=== PATIENT | female | born 1970 | race Caucasian/White ===

== ENCOUNTER → 2023-08-07 13:57 | Outpatient (REF) | payer OTHER, SELFPAY | LOC: HWRAD 13:57 | PROVIDERS: ATTENDING PHYSICIAN Advanced Practice Midwife; FAMILY PHYSICIAN Nurse Practitioner Family | DX: N92.6 Irregular menstruation, unspecified (principal) | CPT/HCPCS: 76830; 76856 ==

== ENCOUNTER 2023-08-20 23:28 | Emergency (ER) | payer OTHER, SELFPAY ==
[2023-08-20 23:32] VITALS: BP 172/74
--- NOTE | 2023-08-21 00:32 | ED.GENMED ---
History of Present Illness
General
Chief Complaint: Dental Problem
Source: patient
Exam Limitations: none
Time Seen by Provider: 08/21/23 00:21
Nursing documentation reviewed up to this point in time: agreed with
Travel History
Have you had any contact with someone who has COVID-19?: No
Do you have any symptoms of coronavirus? Fever > 100 degrees, chills, cough, shortness of breath, sore throat, loss of taste or smell, muscle aches, or headache?: No
History of Present Illness
History of Present Illness:
51-year-old female left upper posterior molar tooth ache wisdom tooth, acute on chronic issue worsened this evening after having tomato sauce better with drinking water she felt some pain into her ear, some nausea she believes due to drinking too
much water she feeling better now she has some ibuprofen she scheduled to see a dentist in a few weeks
Past History
Past History
ED Past Medical History: Other (Kidney stone), Other (Menorrhagia) and Other (Migraine headache )
ED Past Surgical History: Other (D+C, 09/2020)
Patient has exhibited threatening behavior?: No
Social History
Tobacco: Non-smoker
Alcohol: Occasional
Drug: None
Personal:
Living: with family
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
Family History
Family History: Other (MT, CVA, hypertension )
Review of Systems
Review of Systems
All Other Systems: Not applicable
Constitutional: Denies fever
EENT: Reports other (Tooth ache)
ABD/GI: Reports nausea
Phy Exam
Physical Exam
Physical Exam:
Physical Exam
General: no apparent distress, not acutely ill
Neck: No trismus, multiple fillings in the left upper molars, no obvious abscess,
Lungs: no acute respiratory distress.
Neuro: alert and oriented.
Skin: no rash
Psychiatric: well kept. interactive and cooperative
Extremities: No cyanosis
Course
Orders/Labs/Results
Orders:
Orders
08/21/23 00:31
Ibuprofen [Motrin] 600 mg PO NOW STA
Penicillin V Potassium [Pen Vk] 250 mg PO NOW STA
Vital Signs
Initial and Last Documented VS:
Initial Vital Signs
Temp Pulse Resp BP Pulse Ox
97.5 F 78 26 172/74 100
08/20/23 23:32 08/20/23 23:32 08/20/23 23:32 08/20/23 23:32 08/20/23 23:32
Last Documented Vital Signs
Temp Pulse Resp BP Pulse Ox
97.5 F 78 26 172/74 100
08/20/23 23:32 08/20/23 23:32 08/20/23 23:32 08/20/23 23:32 08/20/23 23:32
MDM/Problems Addressed
Differential Diagnosis Includes:
Dental pain abscess infection pulpitis
MDM/Problems Addressed:
Dental pain
*Pulse Oximetry
Patient hypoxic: no
*Critical Care Note
Total Time (30-74mins, 75-104mins- exclusive of procedures): Not Applicable
Update Note
Update Note:
1230 patient no acute distress states she is feeling better drinking water will give her the number for local oral surgeon she can follow-up with she tells me she needs to have her wisdom teeth removed
ED Attending Note
-
Portions of this chart may have been created with voice recognition software.� Occasional wrong word or��sound alike� substitutions may have occurred due to the inherent limitations of voice recognition software.
Discharge Plan
Departure
Prescriptions:
No Action
multivitamin with folic acid [Tab-A-Lenka] 1 TABLET tablet
1 tab PO DAILY
Magnesium
1 tab PO DAILY
Vitamin C:
1 tab PO DAILY
Iron Infusion
1 dose IV WEEKLY
Interventions
Interventions:
*Risk Screen - Suicide Last Done: 08/20/23 23:32
*Neglect/Abuse Screening Last Done: 08/20/23 23:32
[2023-08-21] MEDS: PEN VK 250 MG PO (00:48)
[2023-08-21] MEDS: MOTRIN 600 MG PO (00:48)
== END 2023-08-21 01:02 | disposition home or self-care (01) ==
LOC: EMR 23:28
PROVIDERS: EMERGENCY PHYSICIAN Emergency Medicine; FAMILY PHYSICIAN Nurse Practitioner Family
DX: K08.89 Other specified disorders of teeth and supporting structures (principal); I25.2 Old myocardial infarction; Z82.3 Family history of stroke; Z82.49 Family history of ischemic heart disease and other diseases of the circulatory system; Z87.442 Personal history of urinary calculi
CPT/HCPCS: 99282

== ENCOUNTER → 2024-01-15 16:41 | Outpatient (REF) | payer OTHER, SELFPAY | LOC: HWWDC 16:41 | PROVIDERS: ATTENDING PHYSICIAN Nurse Practitioner Family | DX: Z12.31 Encounter for screening mammogram for malignant neoplasm of breast (principal) | CPT/HCPCS: 77063; 77067 ==

== ENCOUNTER 2024-02-04 06:42 | Day surgery (SDC) | payer OTHER, SELFPAY ==
[2024-01-25 11:04] LABS: HCG, Serum Qualitative Screen Negative
[2024-01-25 11:10] LABS: Blood Urea Nitrogen 10 mg/dl (7-17); Carbon Dioxide 27 mmol/L (22-30); Chloride 103 mmol/L (98-107); Glucose 88 mg/dl (70-99); Potassium 4.3 mmol/L (3.5-5.1); Sodium 139 mmol/L (135-145); eGFR > 60.00
[2024-01-25 11:25] LABS: % Basophils 1.2 % (0-2); % Eosinophils 3.8 % (0-6); % Immature Granulocytes 0.2 % (0-0.5); % Lymphocytes 33.4 % (20.5-51.1); % Neutrophils 52.4 % (42.2-75.2); Absolute Basophils 0.1 10^3/uL (0-0.2); Absolute Eosinophils 0.2 10^3/uL (0-0.7); Absolute Lymphocytes 1.4 10^3/uL (1.2-3.4); Absolute Monocytes 0.4 10^3/uL (0.1-0.6); Absolute Neutrophils 2.2 10^3/uL (1.4-6.5); Hematocrit 38.5 % (37.0-47.0); Mean Corp Hgb Conc. 33.8 g/dL (33.0-37.0); Mean Corpuscular Volume 91.9 fL (81.0-99.0); Mean Platelet Volume 9.7 fL (7.4-10.4); Nucleated Red Blood Cells % 0 %; Platelet Count 227 10^3/uL (130-400); Red Blood Cell Count 4.19 10^6/uL (4.20-5.40); Red Cell Dist. Width 12.2 % (11.5-14.5); White Blood Cell Count 4.2 10^3/uL (4.8-10.8)
[2024-01-25 13:32] VITALS: BMI 23.8
[2024-02-04] VITALS (7 sets, daily range): BP systolic 105–138; BP diastolic 58–84; BMI 24.5
[2024-02-04] MEDS: NORMOSOL-R 1000 IV (10:01)
--- NOTE | 2024-02-04 12:10 | W.IMMPOSTOP ---
Surgical Immed Post Op Note
-
Primary Surgeon: Lety Cortes DO
Assisting Surgeon: none
Pre-op Diagnosis: Abnormal uterine bleeding, endometrial mass
Post-op Diagnosis: same
Procedure Performed: Hysteroscopy D&C myosure resection of endometrial mass (polyp vs fibroid)
Anesthesia Type: general LMA Dr. Bertrand
Specimen / Cultures: 1. endocervical curettings 2. endometrial curettings and resected endometrial mass in sock
Estimated Blood Loss: 5ml
FLuid deficit: 55ml NSS
Complications: none
Operative Findings: Uterus sounded to 8 cm, bilateral tubal ostia seen. Elongated endometrial polypoid mass attached to endometrial wall in body of uterus but extending down to upper endocervical canal. Mass appears fibroiusy- possible fibrous
polyp vs submucosal fibroid.
Counts correct times 2.
stable to recovery
Dictated.
== END 2024-02-04 14:39 | disposition home or self-care (01) ==
LOC: SDS 06:42
PROVIDERS: ATTENDING PHYSICIAN Obstetrics & Gynecology; FAMILY PHYSICIAN Nurse Practitioner Family
DX: D25.9 Leiomyoma of uterus, unspecified (principal); N72 Inflammatory disease of cervix uteri; N93.9 Abnormal uterine and vaginal bleeding, unspecified
CPT/HCPCS: 58561; 88305; 36415; 80048; 84703; 85025; 86850; 86900; 86901; 93005